=== PATIENT | male | born 1965 | race Caucasian/White ===

== ENCOUNTER → 2019-06-20 | Outpatient (CLI) | payer BC ==
[~2019-06-20] MED LIST: CEFD300C3 PO; ENAL20TA PO; ESOM10SU PO
--- NOTE | 2019-06-20 15:58 | Diagnostic Imaging Report ---
EXAMINATION: Chest, two views. HISTORY: Chest wall pain. FINDINGS: No comparison available. The lungs are clear. No edema. No pneumonia. No pleural effusion. No pneumothorax. Heart is normal in size. IMPRESSION: 1. Clear lungs. Dictated by: Dictated on workstation # [id number]
== END ==
LOC: RAD 15:31
PROVIDERS: ATTEND Family Medicine
DX: R07.89 Other chest pain (principal)
CPT/HCPCS: 71046

== ENCOUNTER 2021-01-30 05:41 | Outpatient (CLI) | payer BC ==
[~2021-01-30] VITALS: Ht 180.3 cm; Wt 130.0 kg
[2021-01-30] MEDS ORDERED: OMG1KC PO (10:58)
[2021-01-30] MEDS ORDERED: ENAL20TA16 PO (10:58)
[2021-01-30] MEDS ORDERED: OMEP40CA27 PO (10:58)
[2021-01-30] MEDS ORDERED: MAGN400T39 PO (10:58)
[2021-01-30] MEDS ORDERED: ASPI-1238 PO (10:58)
[2021-01-30] MEDS ORDERED: AMLO-250 PO (10:58)
[2021-01-30] MEDS ORDERED: FLUT16SP22 NS (10:58)
[2021-01-30] MEDS ORDERED: POTA99TA25 PO (10:58)
[2021-01-30] MEDS ORDERED: SIMV20TA26 PO (10:58)
== END 2021-01-30 13:33 | disposition home or self-care (01) ==
LOC: PREOP 05:41
PROVIDERS: ATTEND Internal Medicine
DX: Z01.818 Encounter for other preprocedural examination (principal)

== ENCOUNTER → 2021-02-04 | Outpatient (CLI) | payer BC ==
[~2021-02-04] MED LIST changes: +AMLO-250 PO; +ASPI-1238 PO; +ENAL20TA16 PO; +FLUT16SP22 NS; +MAGN400T39 PO; +OMEP40CA27 PO; +OMG1KC PO; +POTA99TA25 PO; +SIMV20TA26 PO
== END ==
LOC: CARD 10:30
PROVIDERS: ATTEND Internal Medicine Cardiovascular Disease
DX: I51.7 Cardiomegaly (principal)
CPT/HCPCS: 93306

== ENCOUNTER 2021-02-07 09:00 | Day surgery (SDC) | payer BC ==
--- NOTE | 2021-01-29 19:20 | HISTORY AND PHYSICAL ---
DATE OF SERVICE: COLONOSCOPY HISTORY AND PHYSICAL HISTORY OF PRESENT ILLNESS: The patient is a 55-year-old white male referred by Dr. Chicas for screening colonoscopy. He is deemed to be of average risk. He is not aware of any family history for colon polyps or colon cancer. He denies bright red blood per rectum, melena, change in weight, abdominal pain or change in bowel habit. PAST MEDICAL HISTORY: Significant for hypertension, obesity and hyperlipidemia with no known history of coronary artery disease. He has history of reflux and reports it is well controlled on Nexium. PAST SURGICAL HISTORY: Reports no past surgeries. FAMILY HISTORY: Father at age of 77 of complications of coronary artery disease and ischemic cardiomyopathy. Mother is living at the age of 78 with breast cancer and bladder cancer survivor. One sibling alive and well. No reported health problems as I recall. 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 REVIEW OF SYSTEMS: CONSTITUTIONAL: The patient denies night sweats, chills, fever, change in weight. GASTROINTESTINAL: As noted in the HPI. CARDIOVASCULAR: The patient denies chest pain, orthopnea, PND, pedal edema. RESPIRATORY: The patient denies dyspnea on exertion, cough or wheezing. PHYSICAL EXAMINATION: GENERAL: Reveals a pleasant overweight white male in no acute distress. VITAL SIGNS: Weight was 296 pounds, blood pressure 150/100 at the beginning of the interview, 140/92 at the end. HEENT: Unremarkable. CHEST: Clear. CARDIOVASCULAR: Reveals a regular rate and rhythm without murmur, S3 or S4. ABDOMEN: Soft, supple without mass, organomegaly or tenderness. EXTREMITIES: Reveal no cyanosis, clubbing or edema. ASSESSMENT AND PLAN: The patient is being set up for screening colonoscopy, deemed to be of average risk. Prep instructions with Suprep kit were given, questions were answered and electronic medical record was reviewed. I thank you for the referral of this pleasant gentleman. Job ID: [id number] DocumentID: [id number] Dictated Date: 01/28/2021 08:48:43 Shift Production Supervisor Date: 01/28/2021 10:33:34 Dictated By: TADEO ROBERT MD
[~2021-02-07] VITALS: Ht 180.3 cm; Wt 130.0 kg
[~2021-02-07 09:00] MED LIST changes: -OMEP40CA27 PO; +OMEP40CA6 PO
[2021-02-07] MEDS ORDERED: LACTATED RINGERS 1,000 ML IV ONE (09:05)
[2021-02-07] MEDS ORDERED: LACTATED RINGERS 1,000 ML IV STA (09:07)
[2021-02-07 09:15] VITALS: BP 133/99
[2021-02-07] MEDS ORDERED: LIDOCAINE JELLY 2% 6 ML SYRINGE MM PRN (09:15)
--- NOTE | 2021-02-07 09:42 | Pre-Op Note & Conscious Sedat ---
Pre-Operative Progress Note H&P Reviewed The H&P was reviewed, patient examined and no changes noted. Date H&P Reviewed: Feb 07, 2021 Time H&P Reviewed: 09:42 Conscious Sedation Pre-Proced ASA Score 2 For ASA 3 and 4: Consider anesthesia and medical clearance. Also, for patients with a history of failed moderate sedation consider anesthesia. Airway Lungs Heart ASA score ASA 1: a normal healthy patient ASA 2: a patient with a mild systemic disease (mid diabetes, controlled hypertension, obesity ASA 3: a patient with a severe systemic disease that limits activity (angina, COPD, prior Myocardial infarction) ASA 4: a patient with an incapacitating disease that is a constant threat to life (CHF, renal failure) ASA 5: a moribund patient not expected to survive 24 hrs. (ruptured aneurysm) ASA 6: a declared brain- patient whose organs are being harvested. For emergent operations, add the letter E after the classification Mallampati Classification Grade 2 Sedation Plan Analgesia, Amnesia, Plan communicated to team members, Discussed options with patient/fam, Discussed risks with patient/fam The patient is an appropriate candidate to undergo the planned procedure, sedation, and anesthesia. The patient immediately re-assessed prior to indication. TADEO ROBERT MD Feb 07, 2021 09:42
[2021-02-07] MEDS ORDERED: MIDAZOLAM 2 MG/2 ML (VERSED) VIAL ONE (10:08)
[2021-02-07] MEDS ORDERED: PROPOFOL INJECTION 50 ML IV ONE (10:08)
[2021-02-07 10:40] VITALS: BP_SYST 102; BP_DIAS 102; BP_DIAS 64
[2021-02-07 10:45] VITALS: BP_SYST 118; BP_SYST 124; BP_DIAS 72; BP_DIAS 77
[2021-02-07 11:15] VITALS: BP 112/96
--- NOTE | 2021-02-07 15:07 | Anesthesia-General Post-Op ---
MAC Patient Condition Mental Status/LOC: Same as Preop Cardiovascular: Satisfactory Nausea/Vomiting: Absent Respiratory: Satisfactory Pain: Controlled Complications: Absent Post Op Complications Complications None Follow Up Care/Instructions Patient Instructions None needed. Anesthesiology Discharge Order Discharge Order Patient is doing well, no complaints, stable vital signs, no apparent adverse anesthesia problems. No complications reported per nursing. SANTO ARREAGA CRNA Feb 07, 2021 15:07
--- NOTE | 2021-02-07 16:53 | OPERATIVE REPORT ---
DATE OF SERVICE: COLONOSCOPY SUMMARY INDICATION FOR THE PROCEDURE: Screening colonoscopy. PROCEDURE IN DETAIL: The patient was placed in the left lateral decubitus position. Prior to undergoing colonoscopy, digital rectal evaluation was performed. Anal sphincter tone was normal and the perianal reflexes intact. Prostate is mildly enlarged and anodular on digital inspection. No other abnormalities were noted on digital inspection of anal canal or distal rectal vault. Colonoscope was inserted into the rectum and under direct visualization advanced to the cecum. The cecum was identified by identification of the ileocecal valve and the cecal strap. Photographic documentation was obtained. Careful inspection was made as the colonoscope was withdrawn. FINDINGS: There was no evidence for internal or external hemorrhoids and the rectum was unremarkable. The sigmoid colon was unremarkable as well with no evidence for diverticular disease. Present in the proximal descending colon was a diminutive 3 mm sessile polyp. It was biopsied, ablated and submitted for histopathology. There was no subsequent blood loss. The transverse colon, hepatic flexure, ascending colon and cecum were unremarkable. ASSESSMENT: A 3 mm sessile polyp was removed from the proximal descending colon. This was an otherwise normal colonoscopy to the cecum under good prep conditions. Digital evaluation of the prostate is compatible with mild BPH. As long as there are no surprises on histopathology report, would advocate consideration for repeat screening colonoscopy in 10 years. I thank you for the referral of this pleasant gentleman. Job ID: [id number] DocumentID: [id number] Dictated Date: 02/07/2021 10:40:56 Clerk Guide Date: 02/07/2021 16:52:34 Dictated By: TADEO ROBERT MD
== END 2021-02-07 11:28 | disposition home or self-care (01) ==
LOC: ENDO 09:00
PROVIDERS: ATTEND Internal Medicine
DX: Z12.11 Encounter for screening for malignant neoplasm of colon (principal); D12.4 Benign neoplasm of descending colon; N40.0 Benign prostatic hyperplasia without lower urinary tract symptoms; I10 Essential (primary) hypertension; K21.9 Gastro-esophageal reflux disease without esophagitis; E78.5 Hyperlipidemia, unspecified; E66.9 Obesity, unspecified; Z68.41 Body mass index [BMI] 40.0-44.9, adult; Z79.899 Other long term (current) drug therapy
CPT/HCPCS: 88305

== ENCOUNTER → 2021-02-13 | Outpatient (CLI) | payer BC ==
[2021-02-14 09:49] VITALS: BP 136/94
--- NOTE | 2021-02-17 09:09 | Cardiology Stress Test Report ---
Stress Test Report Date of Procedure/Referring: PCP Derek Olmos Jr, MD Admitting Physician Scott Eisenberg MD Indications: Abnormal electrocardiogram. Baseline Heart Rate: 76 Baseline Blood Pressure: Blood Pressure Systolic: 136 Blood Pressure Diastolic: 94 Vital Signs Date Time Temp Pulse Resp B/P (MAP) Pulse Ox O2 Delivery O2 Flow Rate FiO2 02/14/21 09:49 77 16 136/94 (108) 98 Room Air Baseline Vital Signs Vital Signs Date Time Temp Pulse Resp B/P (MAP) Pulse Ox O2 Delivery O2 Flow Rate FiO2 02/14/21 09:49 77 16 136/94 (108) 98 Room Air Baseline EKG: Baseline EKG: Sinus rhythm with low voltage in the precordial leads, possible septal TX. Summary: After explaining the procedure and details to the patient, he signed the consent and was brought to the stress nuclear laboratory. STRESS TEST PROCEDURE: The patient was exercised for a total of 6 minutes and 35 seconds of the standard Bk protocol achieving a maximum met level of 7.1. The resting heart rate was 76 bpm and the peak heart rate was 155 bpm, which represents 92% of the maximum predicted heart rate. The resting blood pressure was 136/94 mmHg and peak blood pressure was 190/84 mmHg. This represents normal heart rate and blood pressure response to exercise. The test was stopped due to the patient attaining the target heart rate. There was no exercise-induced chest disco mfort. There were premature ventricular complexes as isolated and couplet beats during the test. There were no significant electrocardiogram changes during the test. The patient exhibited good exercise capacity for age. NUCLEAR PROCEDURE: This was a 2-day protocol because the patient was inadvertently administered the stress dose of Myoview for his rest images. The patient was administered 32.2 mCi of intravenous technetium Myoview at rest for the rest images. The patient was subsequently administered 31 mCi of intravenous technetium 99 Myoview for the stress images. Following a short wait after each injection, imaging was ob tained. The images were subsequently processed and reformatted in the usual views. Gated imaging was obtained. There was a mild degree of gastrointestinal attenuation artifact noted. This improved with attenuation correction. NUCLEAR RESULTS: There was a small, moderate intensity, reversible basal to mid inferior defect with a small amount of inducible ischemia. There was normal left ventricular chamber size with an end-diastolic volume of 37 mL and an end-systolic volume of 6 mL. There was no evidence of transient ischemic dilatation. The TID ratio was 0.79. There was normal wall motion in all segments with a calculated ejection fraction of 83%. TID: 0.79 Conclusion: 1. Normal heart rate and a hypertensive blood pressure response to exercise. 2. There was no exercise-induced chest discomfort during the test. 3. There were premature ventricular complexes as isolated and couplet beats during the test. 4. There were no exercise-induced electrocardiogram changes. 6. The patient exhibited good exercise capacity for age at 6 minutes and 35 seconds of the standard Bk protocol. 7. There was a small, moderate intensity, reversible basal to mid inferior defect with a small amount of inducible ischemia. 8. There was normal wall motion in all segments with a calculated ejection fraction of 83%. 9. This is an overall low risk result, albeit mildly abnormal. DEREK OLMOS JR, MD Feb 17, 2021 09:23
== END ==
LOC: CARD 08:30
PROVIDERS: ATTEND Internal Medicine Cardiovascular Disease
DX: R94.31 Abnormal electrocardiogram [ECG] [EKG] (principal)
CPT/HCPCS: 78452; 93017

== ENCOUNTER → 2021-07-10 | Outpatient (CLI) | payer BC ==
--- NOTE | 2021-07-10 17:16 | Diagnostic Imaging Report ---
EXAMINATION: Abdomen 1 view. HISTORY: Flank pain. COMPARISON: 10/15/2011 CT. FINDINGS: There is a moderate amount of gas and stool throughout the colon. Nonobstructive bowel gas pattern. A 0.5 cm calcification is seen overlying the right kidney. There is a 0.4 cm calculus overlying the right paraspinous soft tissues which could overlie the right ureter. The lung bases are clear. The osseous structures are intact. IMPRESSION: Calcifications along the right kidney and ureter which could represent renal and ureteral calculi. Consider further evaluation with CT if there is concern for obstructing calculus. Dictated by: Dictated on workstation # [id number]
== END ==
LOC: RAD 15:36
PROVIDERS: ATTEND Nurse Practitioner Family
DX: N28.89 Other specified disorders of kidney and ureter (principal)
CPT/HCPCS: 74018

== ENCOUNTER → 2023-03-02 | Outpatient (CLI) | payer BC ==
[~2023-03-02] VITALS: Ht 180 cm; Wt 131.0 kg
[~2023-03-02] MED LIST changes: +CATHETER FLUSH 10 ML SYR IVP PRN; +ENAL-70 PO; -ENAL20TA16 PO; +REGADENOSON 0.4 MG/5 ML SYR (LEXISCAN) IV ONE
[2023-03-02 09:18] VITALS: BP 135/89
--- NOTE | 2023-03-03 13:23 | STRESS TEST ---
DATE OF SERVICE: 03/02/2023 RESTING AND POST REGADENOSON TECHNETIUM-99M TETROFOSMIN SPECT CT IMAGING ORDERING PHYSICIAN: Chloe Walker MD; SILVANO; PATRICE; DEEDEE; PRIMARY PHYSICIAN: Nathaly Chicas MD CLINICAL DIAGNOSIS: Abnormal stress test. Baseline images were carried out after injection of 10.68 mCi technetium-99m tetrofosmin. This was followed by 0.4 mg regadenoson and 29.5 mCi of technetium-99m tetrofosmin for stress imaging. The electrocardiogram showed sinus rhythm at baseline. It did not change significantly with the regadenoson infusion. The patient noted some shortness of breath and some abdominal discomfort, which resolved in a few minutes. Review of images at rest and following stress does not indicate any distinct perfusion defects consistent with significant myocardial ischemia or infarction. Some degree of diaphragmatic attenuation was seen both at rest and following regadenoson infusion. Gated images showed normal global left ventricular systolic function with normal regional wall motion including the diaphragmatic wall of the left ventricle. Left ventricular end-diastolic volume is 38 mL. TID is absent (1.2). CONCLUSIONS: 1. This study does not indicate significant myocardial ischemia or infarction. 2. Normal regional wall motion. 3. Normal global left ventricular systolic function with a calculated ejection fraction of 70%. Job ID: [id number] DocumentID: [id number] Dictated Date: 03/03/2023 10:00:23 Academic Affairs Specialist Date: 03/03/2023 13:21:00 Dictated By: CHLOE WALKER MD; SILVANO; PATRICE; DEEDEE;
== END ==
LOC: CARD 07:03
PROVIDERS: ATTEND Internal Medicine Cardiovascular Disease
DX: R94.39 Abnormal result of other cardiovascular function study (principal)
CPT/HCPCS: 78452; 93017; A9502